=== PATIENT | male | born 1940 | race Asian ===

== ENCOUNTER 2020-12-17 06:02 | Day surgery (SDC) | payer OTHER ==
[~2020-12-17] VITALS: Ht 152.4 cm; Wt 49.0 kg
[2020-12-17] MEDS ORDERED: diphenhydrAMINE 50 MG/ML VIAL ONE (07:22)
[2020-12-17] MEDS ORDERED: fentaNYL citrate 0.05 MG/ML VIAL ONE ×2 (07:23→08:21)
[2020-12-17] MEDS ORDERED: LIDOCAINE 2% 100 MG/5 ML UJET TP ONE ×2 (07:23→08:21)
[2020-12-17] MEDS ORDERED: MIDAZOLAM 5 MG/5 ML VIAL ONE ×2 (07:23→08:21)
[2020-12-17] MEDS ORDERED: fentaNYL citrate 0.05 MG/ML VIAL IVP ONE (09:22)
[2020-12-17] MEDS ORDERED: MIDAZOLAM 2 MG/2 ML VIAL IVP ONE (09:22)
== END 2020-12-17 10:47 | disposition home or self-care (01) ==
LOC: MDS 06:02 → MMU 06:12 → MDS 10:47
PROVIDERS: ATTEND Internal Medicine Gastroenterology
DX: R10.84 Generalized abdominal pain (principal); D12.0 Benign neoplasm of cecum; D12.2 Benign neoplasm of ascending colon; D12.3 Benign neoplasm of transverse colon; K59.00 Constipation, unspecified; F50.82 Avoidant/restrictive food intake disorder; I10 Essential (primary) hypertension; E11.9 Type 2 diabetes mellitus without complications; Z79.899 Other long term (current) drug therapy
CPT/HCPCS: 45385; 88305; J2250; J3010; J1200